=== PATIENT | female | born 1975 | race Caucasian/White ===

== ENCOUNTER 2018-03-22 13:51 | Emergency (ER) | payer OTHER, MEDICAID ==
[~2018-03-22] VITALS: Ht 154.9 cm; Wt 95.3 kg
[~2018-03-22 13:51] MED LIST: CELEXA 10 MG TA10 M1 PO; CLONAZEPAM 0.50.5 M1 PO; SYNTHROID100 MCG PO; TOPAMAX50 MG PO
[2018-03-22] MEDS ORDERED: CYMBALTA60 MG PO (13:57)
[2018-03-22] MEDS ORDERED: ADDERALL 20 MG20 M1 PO (13:58)
[2018-03-22] MEDS ORDERED: SYNTHROID88 MCG PO (13:58)
[2018-03-22] MEDS ORDERED: SYNTHROID200 MCG PO (13:59)
[2018-03-22] MEDS ORDERED: IBUPROFEN 800800 M1 PO (15:43)
[2018-03-22] MEDS ORDERED: NORCO 5-325 TA1 EACH PO (15:43)
[2018-03-22 16:13] VITALS: BP 144/73
== END 2018-03-22 16:15 | disposition home or self-care (01) ==
LOC: M.ERS 13:51
DX: S82.434A Nondisplaced oblique fracture of shaft of right fibula, initial encounter for closed fracture (principal); S82.891A Other fracture of right lower leg, initial encounter for closed fracture; G43.909 Migraine, unspecified, not intractable, without status migrainosus; W00.0XXA Fall on same level due to ice and snow, initial encounter; Y93.89 Activity, other specified; Y92.89 Other specified places as the place of occurrence of the external cause; Y99.8 Other external cause status